=== PATIENT | male | born 1970 | race Caucasian/White ===

== ENCOUNTER → 2017-02-21 | Day surgery (SDC) | payer OTHER ==
[~2017-02-21] VITALS: Ht 182.9 cm; Wt 72.6 kg
[~2017-02-21] MED LIST: OXYCODONE5 MG PO
--- NOTE | 2017-02-21 09:56 | Operative Report ---
Operative/Inv Procedure Report Surgery Date: 02/21/17 Name of Procedure: right ESWL Pre-Operative Diagnosis: right extrarenal pelvis stone Post-Operative Diagnosis: same Estimated Blood Loss: scant Surgeon/Chief Nurse Anesthetist: CHANDRIKA MCGRAW MD Anesthesia: moderate sedation Complications: none Condition: stable Operative Indication: right renal colic and gross hematuria Operative/Procedure Note Note: 46 yo male with a hx of right renal colic and gross hematuria. He has had ESWL in the past two times for previous stones. He wanted to have it treated with ESWL. He was identified in the holding area and consented for a right extracorporeal shockwave lithotripsy. He was given the risks, benefits and alternatives of the surgery. All questions were answered. Patient was taken to the operating room. He was placed in the supine position and positoned for optimal stone fragmentation via US. The stone was visible by flouroscopy and a preop shot was taken. Time out was performed. NO IV antibiotics were given. ESWL was started at power of 10 for 100 shocks, then 11 for 100 shocks, 12 for 100 shocks, 13 for 100 shocks and finally 20 for 2100 shocks. Patient tolerated the procedure well. The stone was very well fragmented via US view and flouroscopy view. Findings: 5mm right extrarenal pelvis stone Discharge Disposition: Same Day Admissions
== END ==
LOC: STS 04:06
DX: N20.0 Calculus of kidney (principal); Z87.442 Personal history of urinary calculi
CPT/HCPCS: J2250